=== PATIENT | female | born 1970 | race African-American/Black ===

== ENCOUNTER 2020-05-31 09:12 | Observation (INO) ==
[2020-05-31] MEDS ORDERED: SODIUM CHLORIDE 0.9% 1,000 ML IV STA (10:35)
[2020-05-31 10:50] LABS: Basophils % 0.5 % (0.0-0.8); Eosinophils # 0.2 10*3/uL (0.0-0.87); Eosinophils % 2.6 % (0.00-10.9); Hematocrit 42.3 VOL% (35.7-47.0); Hemoglobin 13.4 GM/DL (12.0-16.0); Immature Granulocytes % 0.3 %; Immature Granulocytes Absolute 0.02 #; Lymphocytes # 2.3 10*3/uL (1.4-4.0); Mean Corpuscular HGB Conc 31.7 GM/DL (32-36); Mean Corpuscular Volume 88.3 FL (87-102); Mean Platelet Volume 10.6 FL (9.6-12.0); Monocytes % 7.7 % (1.7-12.7); Neutrophils % 58.9 % (38.7-73.9); Platelet Count 373 T/CUMM (130-400); Red Blood Count 4.79 MC/CUMM (3.8-5.5); Red Cell Distribution Width 12.8 % (9.3-17.3); White Blood Count 7.8 T/CUMM (4-12)
[2020-05-31 11:06] LABS: Albumin 2.8 G/DL (3.4-5.0); Bilirubin,Total 0.4 MG/DL (0.2-1.0); Calcium 9.2 MG/DL (8.5-10.1); Osmolality,Calculated 284.5 MOS/KG (273-304); Potassium 4.1 MMOL/L (3.5-5.1); Total Protein 8.2 G/DL (6.4-8.3)
[2020-05-31 11:14] LABS: Lactic Acid 1.4 MMOL/L (0.4-2.0)
[2020-05-31 11:50] LABS: Barbiturates Screen,Urine Negative (Negative); Benzodiazepines Screen,Urine Negative (Negative); Cannabinoid Screen,Urine Negative (Negative); Opiate Screen,Urine Negative (Negative); Phencyclidine Screen,Urine Negative (Negative)
[2020-05-31 11:55] LABS: Bacteria,Urine Occasional /HPF (Few); Bilirubin,Urine Negative (Negative); Blood, Urine Small mg/dL (Negative); Glucose,Urine (UA) >=500 mg/dL (Negative); Ketones,Urine 5 mg/dL (Negative); Nitrite,Urine Negative (Negative); Protein,Urine 100 MG/DL; RBC,Urine 1 /HPF (0-4); Squamous Epithelial Cell,Urine Occasional /HPF (0-10); Urine Appearance CLEAR (Clear); Urine Color Yellow (Yellow); Urine Specific Gravity 1.024 (1.001-1.035); Urine Urobilinogen < 2.0 EU/DL (0.2-1.0); WBC,Urine 3 /HPF (0-6)
[2020-05-31] MEDS ORDERED: hydrALAZINE 20 MG/1 ML VIAL IV STA (12:28)
[2020-05-31] MEDS ORDERED: INSULIN REGULAR 100 UNIT/ML IV STA (12:30)
[2020-05-31] MEDS ORDERED: DEXTROSE 50% 25 GM/50 ML VIAL IV PRN ×2 (13:26→13:28)
[2020-05-31] MEDS ORDERED: GLUCAGON 1 MG VIAL IM PRN ×3 (13:26→13:28)
[2020-05-31] MEDS ORDERED: SODIUM CHLORIDE 0.9% 1,000 ML IV ONE (13:28)
[2020-05-31] MEDS: INSULIN LISPRO 100 UNIT/ML SUBCUT SCH ×2 (17:10→21:26)
[2020-05-31] MEDS: glipiZIDE 10 MG TABLET PO SCH (17:12)
[2020-05-31] MEDS: metFORMIN 850 MG TABLET PO SCH ×2 (17:12→21:26)
[2020-05-31] MEDS: ENOXAPARIN 40 MG/0.4 ML SYRINGE SUBCUT SCH (18:00)
[2020-05-31] MEDS: METOPROLOL TARTRATE 50 MG TABLET PO SCH (21:26)
[2020-05-31] MEDS: SODIUM CHLORIDE 0.9% 1,000 ML IV SCH (21:26)
[2020-06-01] MEDS ORDERED: ACETAMINOPHEN 325 MG TABLET PO PRN (05:06)
[2020-06-01] MEDS: SODIUM CHLORIDE 0.9% 1,000 ML IV SCH ×3 (05:29→16:24)
[2020-06-01 05:56] LABS: Basophils % 0.3 % (0.0-0.8); Eosinophils # 0.2 10*3/uL (0.0-0.87); Eosinophils % 2.7 % (0.00-10.9); Hematocrit 36.7 VOL% (35.7-47.0); Hemoglobin 11.5 GM/DL (12.0-16.0); Immature Granulocytes % 0.2 %; Immature Granulocytes Absolute 0.02 #; Lymphocytes # 3.9 10*3/uL (1.4-4.0); Mean Corpuscular HGB Conc 31.3 GM/DL (32-36); Mean Platelet Volume 10.3 FL (9.6-12.0); Monocytes % 8.4 % (1.7-12.7); Neutrophils % 44.4 % (38.7-73.9); Platelet Count 326 T/CUMM (130-400); Red Blood Count 4.08 MC/CUMM (3.8-5.5); Red Cell Distribution Width 13.2 % (9.3-17.3); White Blood Count 8.8 T/CUMM (4-12)
[2020-06-01 06:44] LABS: Calcium 8.2 MG/DL (8.5-10.1); Osmolality,Calculated 281.7 MOS/KG (273-304); Risk Ratio 3.98; Thyroid Stimulating Hormone 1.42 uIU/ml (0.358-3.74); VLDL CHOLESTEROL 39.4 MG/DL
[2020-06-01] MEDS: metFORMIN 850 MG TABLET PO SCH ×3 (09:55→20:07)
[2020-06-01] MEDS: METOPROLOL TARTRATE 50 MG TABLET PO SCH ×2 (09:56→20:06)
[2020-06-01] MEDS: PANTOPRAZOLE 40 MG TABLET PO SCH (09:56)
[2020-06-01] MEDS: OMEGA 3 ACID ETHYL ESTERS 1 GM CAPSULE PO SCH (09:56)
[2020-06-01] MEDS: glipiZIDE 10 MG TABLET PO SCH (09:56)
[2020-06-01] MEDS: INSULIN LISPRO 100 UNIT/ML SUBCUT SCH ×4 (10:44→20:11)
[2020-06-01] MEDS: ENOXAPARIN 40 MG/0.4 ML SYRINGE SUBCUT SCH (14:16)
[2020-06-02] MEDS: SODIUM CHLORIDE 0.9% 1,000 ML IV SCH (01:35)
[2020-06-02] MEDS: metFORMIN 850 MG TABLET PO SCH (09:05)
[2020-06-02] MEDS: METOPROLOL TARTRATE 50 MG TABLET PO SCH (09:08)
[2020-06-02] MEDS: glipiZIDE 10 MG TABLET PO SCH (09:08)
[2020-06-02] MEDS: PANTOPRAZOLE 40 MG TABLET PO SCH (09:09)
[2020-06-02] MEDS: OMEGA 3 ACID ETHYL ESTERS 1 GM CAPSULE PO SCH (09:13)
[2020-06-02 14:02] VITALS: BP 162/83
== END 2020-06-02 10:50 | disposition home health service (06) ==
LOC: N.EDINP 09:12 → N.ED 09:12 → N.EDINP 18:32 → N.4E 18:52
PROVIDERS: ADMIT Internal Medicine; ATTEND Internal Medicine